=== PATIENT | male | born 1985 | race Caucasian/White ===

== ENCOUNTER 2020-01-09 21:15 | Emergency (ER) | payer SELFPAY ==
[~2020-01-09] VITALS: Ht 165.1 cm; Wt 88.9 kg
[2020-01-09 21:19] VITALS: BP 139/84
--- NOTE | 2020-01-09 21:31 | NUR ---
ambulated to bed 12 with steady gait
--- NOTE | 2020-01-09 21:32 | NUR ---
SOFIA Cronin at bedside assessing pt
--- NOTE | 2020-01-09 21:35 | NUR ---
SOFIA GIBSON EVALUATING AND ASSESSING PT. NO NURSING INTERVENTIONS NEEDED AT THIS TIME.
[2020-01-09 21:46] VITALS: BP 139/84
== END 2020-01-09 21:46 | disposition home or self-care (01) ==
LOC: MED 21:15
DX: R04.0 Epistaxis (principal); R51 Headache
CPT/HCPCS: 99282